=== PATIENT | male | born 1955 | race Caucasian/White ===

== ENCOUNTER 2017-01-01 05:34 | Outpatient (CLI) | payer BC ==
[~2017-01-01] VITALS: Ht 177.8 cm; Wt 86.2 kg
[~2017-01-01 05:34] MED LIST: [UNRECOGNIZED DRUG - REMARK]
== END 2017-01-01 12:42 ==
LOC: PREOP 05:34
PROVIDERS: ATTEND Surgery
DX: Z01.818 Encounter for other preprocedural examination (principal); Z12.11 Encounter for screening for malignant neoplasm of colon

== ENCOUNTER 2017-01-06 10:57 | Day surgery (SDC) | payer BC ==
[~2017-01-06] VITALS: Ht 177.8 cm; Wt 86.2 kg
[2017-01-06] MEDS ORDERED: LACTATED RINGERS 1,000 ML IV ONE (11:21)
[2017-01-06] MEDS ORDERED: TERBIN250T PO (11:31)
[2017-01-06] MEDS ORDERED: SIMV10TA3 PO (11:31)
[2017-01-06 11:33] VITALS: BP 126/85
[2017-01-06] MEDS ORDERED: LACTATED RINGERS 1,000 ML IV SCH (11:45)
--- NOTE | 2017-01-06 12:59 | Progress Note-Pre Operative ---
Pre-Operative Progress Note H&P Reviewed The H&P was reviewed, patient examined and no changes noted. Date Seen by Provider: Jan 06, 2017 Time Seen by Provider: 12:59 Date H&P Reviewed: Jan 06, 2017 Time H&P Reviewed: 12:59 Pre-Operative Diagnosis: screening colonoscopy CHAZ SCHMID DO Jan 06, 2017 12:59 pm
[2017-01-06] MEDS ORDERED: MIDAZOLAM 2 MG/2 ML (VERSED) VIAL ONE (13:35)
[2017-01-06] MEDS ORDERED: PROPOFOL INJECTION 50 ML IV ONE (13:35)
[2017-01-06 14:35] VITALS: BP 138/79
--- NOTE | 2017-01-06 14:44 | Progress Note-Post Operative ---
Post-Operative Progess Note Surgeon (s)/Consulting Systems Engineer (s) Surgeon CHAZ SCHMID DO Consulting Systems Engineer: na Pre-Operative Diagnosis screening colonoscopy Post-Operative Diagnosis sigmoid colon polyp, diverticulosis Procedure & Operative Findings Date of Procedure 01/06/17 Procedure Performed/Findings colonoscopy with hot bx polypectomy Anesthesia Type per [facility] Estimated Blood Loss Estimated blood loss (mL): none Specimens/Packing Specimens Removed sigmoid polyp CHAZ SCHMID DO Jan 06, 2017 2:44 pm
--- NOTE | 2017-01-06 14:45 | Discharge Inst-Simple/Standard ---
Discharge Inst-Standard Patient Instructions/Follow Up Plan of Care/Instructions/FU: Follow up with Dr. Arana in 2 weeks High fiber diet Repeat colonoscopy in 3 years. Activity as Tolerated: Yes Discharge Diet: No Restrictions KELLY BEST APRN Jan 06, 2017 14:45
[2017-01-06 15:00] VITALS: BP 120/86
[2017-01-06 15:10] VITALS: BP 120/86
--- OUTSIDE RECORDS SUMMARY | 2017-01-06 20:02 | XMS REPORT ---
Author Author MATTIE HOLLEY [facility] eClinicalWorks Address Unknown Phone Unavailable Care Team Providers Care Spiral Winding Machine Helper Name Role Phone MATTIE HOLLEY Unavailable Allergies No Known Allergies Problems Problem Type Condition Code Onset Dates Condition Status Assessment Encounter for immunization Z23 Active Problem Need for prophylactic vaccination and inoculation, Influenza V04.81 Active Medications No Known Medications Procedures Procedure Coding System Code Date SINGLE IMMUNIZATION ADMIN CPT-4 66602 May 13, 2016 FLUARIX QUAD P-FREE 3 AND UP .50 2015 CPT-4 14041 May 13, 2016 Results No Known Results Immunizations Vaccine Administration Date FLUARIX QUAD P-FREE 3 AND UP .50 2015May 13, 2016 Summary Purpose eClinicalWorks Submission
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
--- OUTSIDE RECORDS SUMMARY | 2017-01-06 20:02 | XMS REPORT ---
Author Author MATTIE HOLLEY Organization eClinicalWorks Address Unknown Phone Unavailable Care Team Providers Care Senior Tax Analyst Name Role Phone MATTIE HOLLEY CP Unavailable Allergies No Known Allergies Problems Problem Type Condition Code Onset Dates Condition Status Assessment Encounter for immunization Z23 Active Problem Need for prophylactic vaccination and inoculation, Influenza V04.81 Active Medications No Known Medications Procedures Procedure Coding System Code Date FLUARIX QUAD (3 & UP)-GSK-2014 CPT-4 64610 May 02, 2015 SINGLE IMMUNIZATION ADMIN CPT-4 50851 May 02, 2015 TDAP (BOOSTRIX) CPT-4 13107 May 02, 2015 IMMUNIZATION ADMIN, EACH ADD (please include units) CPT-4 42894 May 02, 2015 Results No Known Results Immunizations Vaccine Administration Date FLUARIX QUAD (3 & UP)-GSK-2014May 02, 2015 TDAP (BOOSTRIX) May 02, 2015 Summary Purpose eClinicalWorks Submission
--- NOTE | 2017-01-07 18:13 | OPERATIVE REPORT ---
PROCEDURE PHYSICIAN: CHAZ SCHMID DATE OF PROCEDURE: 01/06/2017 PREOPERATIVE DIAGNOSIS: Screening colonoscopy. POSTOPERATIVE DIAGNOSES: 1. Diverticulosis. 2. Sigmoid colon polyp. PROCEDURE: Colonoscopy with hot biopsy polypectomy. SURGEON: Yasmeen. ANESTHESIA: Per MDA. ESTIMATED BLOOD LOSS: None. COMPLICATIONS: None. INDICATIONS: The patient is a 61-year-old male who has not had a colonoscopy to date. He understands the risks and benefits of the procedure and wished to proceed with the procedure. Consent was signed on the chart. PROCEDURE: The patient was taken to the endoscopy suite, placed in left lateral recumbent position. Timeout was performed. Scope was inserted into the rectum and advanced all way cecum with minimal difficulty. Prep was adequate. There were no polyps, masses, ulcerations within the cecum. The scope was then slowly retracted back. There are no polyps, masses, ulcerations within the cecum, ascending, transverse, and descending colon. In the sigmoid colon, a flat appearing polyp at a fold was present, which hot biopsy polypectomy was performed. The scope was then continuously slowly retracted back. There was a minimal amount of diverticulosis present. The scope was continuously retracted back into the rectum where it was also retroflexed noting some internal hemorrhoid disease. The scope was returned its normal position and slowly drawn until completely removed noting no other pathology. RECOMMENDATIONS: The patient is to be a high fiber diet. He will follow-up in the office in 2 to 3 weeks to discuss pathology results. I would recommend repeat colonoscopy in 3 to 5 years. Job ID: [id number] Dictated Date: 01/06/2017 14:46:57 Prefabricator Date: 01/07/2017 18:03:12 / julissa
== END 2017-01-06 15:10 | disposition home or self-care (01) ==
LOC: ENDO 10:57
PROVIDERS: ATTEND Surgery
DX: Z12.11 Encounter for screening for malignant neoplasm of colon (principal); K63.5 Polyp of colon; K57.30 Diverticulosis of large intestine without perforation or abscess without bleeding; E78.5 Hyperlipidemia, unspecified; Z79.899 Other long term (current) drug therapy; Z87.891 Personal history of nicotine dependence
CPT/HCPCS: 88305

== ENCOUNTER 2019-03-12 16:28 | Emergency (ER) | payer MEDICARE, OTHER ==
[~2019-03-12] VITALS: Ht 175 cm; Wt 83.6 kg
[~2019-03-12 16:28] MED LIST changes: +SIMV10TA3 PO; +TERBIN250T PO
[2019-03-12] MEDS ORDERED: NITROGLYCERIN 0.4 MG SL TABS BTL 25'S SL PRN (16:45)
[2019-03-12] MEDS ORDERED: ASPIRIN 81 MG CHEW (CHILDREN'S ASA) PO ONE (16:45)
[2019-03-12 16:48] LABS: BASOPHILS % (AUTO) 1 % (0-10); EOSINOPHILS # (AUTO) 0.2 10^3/uL (0.0-0.3); EOSINOPHILS % (AUTO) 2 % (0-10); HEMATOCRIT 44 % (40-54); LYMPHOCYTES # (AUTO) 2.3 X 10^3 (1.0-4.0); LYMPHOCYTES % (AUTO) 28 % (12-44); MEAN CORPUSCULAR HEMOGLOBIN 32 PG (25-34); MEAN CORPUSCULAR HGB CONC 34 G/DL (32-36); MEAN CORPUSCULAR VOLUME 92 FL (80-99); MEAN PLATELET VOLUME 10.2 FL (7.4-10.4); MONOCYTES # (AUTO) 1.1 X 10^3 (0.0-1.0); MONOCYTES % (AUTO) 13 % (0-12); NEUTROPHILS # (AUTO) 4.5 X 10^3 (1.8-7.8); NEUTROPHILS % (AUTO) 56 % (42-75); PLATELET COUNT 187 10^3/uL (130-400); RED CELL DISTRIBUTION WIDTH 12.2 % (10.0-14.5); WHITE BLOOD COUNT 8.1 10^3/uL (4.3-11.0)
[2019-03-12 16:58] LABS: INR 0.9 (0.8-1.4); PROTHROMBIN TIME PATIENT 12.9 SEC (12.2-14.7)
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
[2019-03-12] MEDS ORDERED: hydrALAZINE (APESOLINE) 20 MG/ML VIAL IV ONE (17:00)
[2019-03-12 17:08] LABS: ALANINE AMINOTRANSFERASE 25 U/L (0-55); ALBUMIN 4.3 GM/DL (3.2-4.5); ALKALINE PHOSPHATASE 67 U/L (40-136); AMYLASE 65 U/L (25-125); BILIRUBIN,TOTAL 0.6 MG/DL (0.1-1.0); BUN/CREATININE RATIO 27; CALCIUM 9.2 MG/DL (8.5-10.1); CARBON DIOXIDE 23 MMOL/L (21-32); CHLORIDE 105 MMOL/L (98-107); CREATINE KINASE 176 U/L (30-200); CREATININE SERUM 0.82 MG/DL (0.60-1.30); GFR ESTIMATED > 60; GLUCOSE 84 MG/DL (70-105); LIPASE 26 U/L (8-78); MAGNESIUM 2.1 MG/DL (1.6-2.4); POTASSIUM 3.9 MMOL/L (3.6-5.0); SODIUM 140 MMOL/L (135-145); TOTAL PROTEIN 7.2 GM/DL (6.4-8.2)
--- NOTE | 2019-03-12 17:16 | Diagnostic Imaging Report ---
INDICATION: Coronary artery disease. COMPARISON: 07/05/2014. EXAMINATION: Single view of the chest was obtained. FINDINGS: Chronic elevation of the left hemidiaphragm. The heart is prominent but stable. There is no pulmonary edema, pneumothorax or acute infiltrate. Sternal wires midline. Osseous structures are normal. IMPRESSION: Stable cardiac enlargement without pulmonary edema or infiltrate. Dictated by: Dictated on workstation # [id number]
[2019-03-12] MEDS ORDERED: KETOROLAC 30 MG/ML VIAL IVP ONE (17:30)
[2019-03-12] MEDS ORDERED: HOLD METFORMIN - RECEIVED CONTRAST 20 ML VIAL IV SCH (17:30)
[2019-03-12] MEDS ORDERED: NS 100 ML (IVPB) BAG IV ONE (17:30)
[2019-03-12] MEDS ORDERED: CATHETER FLUSH 10 ML SYR IV PRN (17:30)
[2019-03-12] MEDS ORDERED: IOHEXOL 350 MG/ML 100 ML (OMNIPAQUE 350) VIAL IV ONE (17:30)
--- NOTE | 2019-03-12 18:13 | Diagnostic Imaging Report ---
PROCEDURE: CT angiography of the chest with contrast. TECHNIQUE: Multiple contiguous axial images were obtained through the chest after uneventful bolus administration of intravenous contrast. 3D reconstructed CTA MIP acquisitions were also performed. Auto Exposure Controls were utilized during the CT exam to meet ALARA standards for radiation dose reduction. INDICATION: Chest pain. COMPARISON: 09/25/2010. FINDINGS: There is chronic elevation of the left hemidiaphragm. The lungs are otherwise clear. The heart and pulmonary arteries are grossly unremarkable. There has been prior CABG. The aorta is normal. No lymphadenopathy is seen. No pleural or pericardial effusion identified. IMPRESSION: 1. No pulmonary embolism or acute aortic pathology. 2. Status post CABG. 3. Chronic elevation of the left hemidiaphragm. Dictated by: Dictated on workstation # [id number]
[2019-03-12] MEDS ORDERED: PREG75CA PO (19:01)
[2019-03-12] MEDS ORDERED: VALA10004 PO (19:01)
[2019-03-12] MEDS ORDERED: PREGABALIN 75 MG (LYRICA) CAP PO ONE (19:15)
[2019-03-12 19:18] VITALS: BP 144/67
[2019-03-12] MEDS ORDERED: ACYCLOVIR 400 MG TABLET (ZOVIRAX) PO SCH (21:00)
== END 2019-03-12 19:30 | disposition home or self-care (01) ==
LOC: EDUNIT# 16:28 → ER 16:29
DX: R07.9 Chest pain, unspecified (principal); I10 Essential (primary) hypertension; B02.9 Zoster without complications; E78.00 Pure hypercholesterolemia, unspecified; Z88.2 Allergy status to sulfonamides; Z88.5 Allergy status to narcotic agent; Z87.891 Personal history of nicotine dependence; Z90.49 Acquired absence of other specified parts of digestive tract; Z86.012 Personal history of benign carcinoid tumor
CPT/HCPCS: 36415; 71045; 71275; 80053; 82150; 82550; 82553; 83690; 83735; 83874; 83880; 84484; 85025; 85610; 85730; 93005; 93041